=== PATIENT | female | born 1945 | race Caucasian/White ===

== ENCOUNTER → 2018-02-04 09:03 | Outpatient (CLI) | payer MEDICARE, SELFPAY ==
[2018-02-04 10:45] LABS: Cholesterol 210 mg/dL (140-199); HDL Cholesterol 64 mg/dL (40-60); LDL Cholesterol Calculated 129 mg/dL (<100); Triglycerides 83 mg/dL (35-150)
== END ==
PROVIDERS: PCP Internal Medicine; Visit Provider Internal Medicine
DX: M81.0 Age-related osteoporosis without current pathological fracture (principal); Z78.0 Asymptomatic menopausal state; E78.00 Pure hypercholesterolemia, unspecified; I10 Essential (primary) hypertension; Z90.722 Acquired absence of ovaries, bilateral
CPT/HCPCS: 36415; 77080; 80061

== ENCOUNTER → 2018-06-10 12:07 | Outpatient (CLI) | payer MEDICARE, SELFPAY ==
[2018-06-10 14:16] LABS: Alanine Aminotransferase 40 IU/L (9-52); Aspartate Aminotransferase 27 IU/L (14-36); Cholesterol 155 mg/dL (140-199); HDL Cholesterol 67 mg/dL (40-60); LDL Cholesterol Calculated 76 mg/dL (<100); Triglycerides 59 mg/dL (35-150)
== END ==
PROVIDERS: PCP Internal Medicine; Visit Provider Internal Medicine
DX: E78.00 Pure hypercholesterolemia, unspecified (principal)
CPT/HCPCS: 36415; 80061; 84450; 84460

== ENCOUNTER → 2018-12-02 08:04 | Outpatient (CLI) | payer MEDICARE, SELFPAY ==
[2018-12-02 09:44] LABS: Alanine Aminotransferase 27 IU/L (9-52); Aspartate Aminotransferase 32 IU/L (14-36); BUN Creatinine Ratio 31.7 (6-22); Blood Urea Nitrogen 19 mg/dL (7-17); Calcium 8.9 mg/dL (8.4-10.2); Carbon Dioxide 28 mmol/L (22-32); Chloride 105 mmol/L (98-107); Cholesterol 143 mg/dL (140-199); Estimated Glomerular Filt Rate > 60.0 mL/min (>60); Glucose 92 mg/dL (80-110); HDL Cholesterol 65 mg/dL (40-60); HEMOLYSIS < 15 (0-50); LDL Cholesterol Calculated 69 mg/dL (<100); Potassium 4.4 mmol/L (3.4-5.1); Sodium 141 mmol/L (137-145); Triglycerides 47 mg/dL (35-150)
== END ==
PROVIDERS: PCP Internal Medicine; Visit Provider Internal Medicine
DX: I10 Essential (primary) hypertension (principal); E78.00 Pure hypercholesterolemia, unspecified
CPT/HCPCS: 36415; 80048; 80061; 84450; 84460

== ENCOUNTER → 2019-04-12 11:52 | Outpatient (CLI) | payer MEDICARE, SELFPAY ==
[2019-04-12 12:50] LABS: Cholesterol 156 mg/dL (140-199); HDL Cholesterol 66 mg/dL (40-60); LDL Cholesterol Calculated 77 mg/dL (<100); Triglycerides 63 mg/dL (35-150)
== END ==
PROVIDERS: PCP Internal Medicine; Visit Provider Internal Medicine
DX: E78.00 Pure hypercholesterolemia, unspecified (principal)
CPT/HCPCS: 36415; 80061

== ENCOUNTER → 2019-05-31 12:54 | Oncology outpatient (ONC) | payer MEDICARE, SELFPAY ==
[2019-05-31 14:02] VITALS: BP 122/61; PULSE 52; RESP 16; TEMP 36.6; O2SAT 93
[2019-05-31] MEDS: ZOLEDRONIC ACID 5 MG in SODIUM CHLORIDE 0.9% 100 ML 318.75 ML IV (14:18)
== END ==
LOC: ONC 12:56
PROVIDERS: PCP Internal Medicine; Visit Provider Internal Medicine
DX: M81.0 Age-related osteoporosis without current pathological fracture (principal)
CPT/HCPCS: 96365; J3489

== ENCOUNTER → 2019-06-24 14:36 | Outpatient (ROUT) | payer MEDICARE, SELFPAY | PROVIDERS: PCP Internal Medicine; Visit Provider Physician Assistant | DX: R39.9 Unspecified symptoms and signs involving the genitourinary system (principal) | CPT/HCPCS: 87086 ==

== ENCOUNTER → 2019-11-22 14:27 | Outpatient (CLI) | payer MEDICARE, SELFPAY ==
[2019-11-23 12:38] LABS: SARS CoV19 IgG Negative (Negative)
== END ==
PROVIDERS: PCP Internal Medicine; Referring Provider Internal Medicine; Visit Provider Internal Medicine
DX: Z03.818 Encounter for observation for suspected exposure to other biological agents ruled out (principal)
CPT/HCPCS: 36415; 86769

== ENCOUNTER → 2020-11-17 12:39 | Outpatient (CLI) | payer MEDICARE, SELFPAY ==
[2020-11-17 13:28] LABS: Add Manual Diff / Slide Review NO; Basophils Absolute Auto 100 /uL (0-100); Basophils Percent Auto 0.9 % (0-2); Eosinophils Absolute Auto 400 /uL (0-450); Eosinophils Percent Auto 5.4 % (2-4); Hematocrit 39.3 % (36-46); Hemoglobin 13.2 g/dL (12.0-16.0); Lymphocytes Absolute Auto 600 /uL (1100-4500); Lymphocytes Percent Auto 7.6 % (25-40); Mean Corpuscular HGB Conc 33.6 % (30-36); Mean Corpuscular Hemoglobin 31.4 PG (26-34); Mean Corpuscular Volume 93.3 fL (80-100); Monocytes Absolute Auto 700 /uL (0-900); Monocytes Percent Auto 9.9 % (3-14); Neutrophils Absolute Auto 5600 /uL (1500-7000); Neutrophils Percent Auto 76.2 % (50-75); Platelet Count 255 X10^3/uL (150-400); Red Blood Cell Count 4.21 X10^6/uL (4.0-5.2); Red Cell Distribution Width 13.3 % (11.6-14.8); White Blood Cell Count 7.3 X10^3/uL (4.5-11.0)
[2020-11-17 13:44] LABS: Alanine Aminotransferase 23 IU/L (<35); Albumin 4.1 g/dL (3.5-5.0); Albumin Globulin Ratio 1.5 (1.0-2.8); Alkaline Phosphatase 53 U/L (38-126); Aspartate Aminotransferase 33 IU/L (14-36); Bilirubin Total 0.7 mg/dL (0.2-1.3); Blood Urea Nitrogen 17 mg/dL (7-17); Calcium 9.1 mg/dL (8.4-10.2); Carbon Dioxide 29 mmol/L (22-32); Chloride 101 mmol/L (98-107); Estimated Glomerular Filt Rate > 60.0 mL/min (>60); Globulin 2.8 g/dL (1.7-4.1); Glucose 97 mg/dL (80-110); HEMOLYSIS < 15 (0-50); Magnesium 1.9 mg/dL (1.6-2.3); Potassium 4.1 mmol/L (3.4-5.1); Sodium 135 mmol/L (137-145); Total Protein 6.9 g/dL (6.3-8.2)
== END ==
PROVIDERS: PCP Internal Medicine; Referring Provider Internal Medicine Hematology & Oncology; Visit Provider Internal Medicine Hematology & Oncology
DX: C34.90 Malignant neoplasm of unspecified part of unspecified bronchus or lung (principal); I10 Essential (primary) hypertension; C79.31 Secondary malignant neoplasm of brain
CPT/HCPCS: 36415; 80053; 83735; 85025

== ENCOUNTER → 2021-01-05 14:47 | Outpatient (CLI) | payer MEDICARE, SELFPAY ==
[2021-01-05 15:56] LABS: High Sensitivity CRP - Cardiac < 0.3 mg/L (1.0-3.0)
[2021-01-05 16:10] LABS: Erythrocyte Sedimentation Rate 22 MM/HR (0-20)
[2021-01-05 16:29] LABS: Ferritin 83 ng/mL (11-264)
[2021-01-05 16:36] LABS: Vitamin D 25 Hydroxy (D3) 43.6 ng/mL (30.0-100.0)
[2021-01-05 16:42] LABS: Vitamin B12 347 pg/mL (239-931)
[2021-01-06 07:36] LABS: IGA 144 mg/dL (64-422); IGG 1117 mg/dL (586-1602); IGM 106 mg/dL (26-217)
[2021-01-06 08:36] LABS: SARS CoV19 IgG Positive (Negative)
[2021-01-06 21:46] LABS: Zinc 55 ug/dL (44-115)
== END ==
PROVIDERS: PCP Internal Medicine; Referring Provider Naturopath; Visit Provider Naturopath
DX: M85.89 Other specified disorders of bone density and structure, multiple sites (principal); E55.9 Vitamin D deficiency, unspecified; I87.309 Chronic venous hypertension (idiopathic) without complications of unspecified lower extremity; J45.990 Exercise induced bronchospasm; Z20.822 Contact with and (suspected) exposure to COVID-19
CPT/HCPCS: 36415; 82306; 82607; 82728; 82784; 84630; 85651; 86140; 86769

== ENCOUNTER → 2021-02-15 14:56 | Outpatient (CLI) | payer MEDICARE, SELFPAY ==
--- NOTE | 2021-02-15 15:00 | DI.MG.S_ITS ---
BILATERAL DIGITAL SCREENING MAMMOGRAM 3D/2D WITH CAD: 02/15/2021 CLINICAL: Routine screening. Comparison is made to exams dated: 12/19/2014 mammogram, 11/16/2013 mammogram - [facility], 11/13/2012 mammogram, and 11/01/2011 mammogram - [facility]. The tissue of both breasts is heterogeneously dense. This may lower the sensitivity of mammography. Current study was also evaluated with a Computer Aided Detection (CAD) system. There are benign vascular calcifications in both breasts. No significant masses, calcifications, or other findings are seen in either breast. There has been no significant interval change. IMPRESSION: BENIGN There is no mammographic evidence of malignancy. A 1 year screening mammogram is recommended. This exam was interpreted at Station ID: [id number]. NOTE: For mammograms, a report in lay terms will be sent to the patient. Approximately 15% of breast malignancies will not be visualized mammographically. In the management of a palpable breast mass, a negative mammogram must not discourage biopsy of a clinically suspicious lesion. Electronically Signed By: Alverto camara/june:02/15/2021 17:19:24 letter sent: Normal Exam ACR BI-RADS Category 2: Benign Finding(s) 3342F
--- NOTE | 2021-02-15 15:00 | DI.RAD.S_ITS ---
PROCEDURE: XR DEXA AXIAL SKELETON INDICATIONS: ROUTINE SCREENING COMPARISON: None. FINDINGS: This blank DEXA report has been sent in error by the PACS system. The correct and complete report will be forthcoming in 1-2 days. Thank you for your patience and understanding. Dictated by: Oni Beck M.D. on 02/15/2021 at 17:02 Approved by: Oni Beck M.D. on 02/15/2021 at 17:03
== END ==
PROVIDERS: PCP Internal Medicine; Referring Provider Internal Medicine; Visit Provider Internal Medicine
DX: M81.0 Age-related osteoporosis without current pathological fracture (principal); Z12.31 Encounter for screening mammogram for malignant neoplasm of breast; Z78.0 Asymptomatic menopausal state; M85.852 Other specified disorders of bone density and structure, left thigh; M85.851 Other specified disorders of bone density and structure, right thigh; M85.88 Other specified disorders of bone density and structure, other site
CPT/HCPCS: 77063; 77067; 77080

== ENCOUNTER → 2021-04-25 11:16 | Outpatient (CLI) | payer MEDICARE, SELFPAY ==
[2021-04-25 13:22] LABS: COVID-19 CEPHEID PCR (VTM/NP) Negative (Negative)
== END ==
PROVIDERS: PCP Internal Medicine; Visit Provider Physician Assistant
DX: Z20.822 Contact with and (suspected) exposure to COVID-19 (principal)
CPT/HCPCS: C9803; U0003

== ENCOUNTER → 2021-05-28 10:06 | Outpatient (CLI) | payer MEDICARE, SELFPAY ==
[2021-05-28 12:00] LABS: Add Manual Diff / Slide Review NO; Basophils Absolute Auto 100 /uL (0-100); Eosinophils Absolute Auto 200 /uL (0-450); Hematocrit 32.3 % (36-46); Hemoglobin 10.7 g/dL (12.0-16.0); Lymphocytes Absolute Auto 1200 /uL (1100-4500); Lymphocytes Percent Auto 19.5 % (25-40); Mean Corpuscular HGB Conc 33.2 % (30-36); Mean Corpuscular Hemoglobin 28.9 PG (26-34); Mean Corpuscular Volume 86.9 fL (80-100); Monocytes Absolute Auto 800 /uL (0-900); Monocytes Percent Auto 12.5 % (3-14); Neutrophils Absolute Auto 4000 /uL (1500-7000); Platelet Count 124 X10^3/uL (150-400); Red Blood Cell Count 3.71 X10^6/uL (4.0-5.2); Red Cell Distribution Width 21.2 % (11.6-14.8); White Blood Cell Count 6.2 X10^3/uL (4.5-11.0)
[2021-05-28 12:02] LABS: Alanine Aminotransferase 164 IU/L (<35); Albumin 2.8 g/dL (3.5-5.0); Albumin Globulin Ratio 0.9 (1.0-2.8); Alkaline Phosphatase 1216 U/L (38-126); Aspartate Aminotransferase 68 IU/L (14-36); BUN Creatinine Ratio 28.8 (6-22); Bilirubin Total 0.6 mg/dL (0.2-1.3); Blood Urea Nitrogen 15 mg/dL (7-17); Calcium 7.6 mg/dL (8.4-10.2); Carbon Dioxide 26 mmol/L (22-32); Chloride 108 mmol/L (98-107); Estimated Glomerular Filt Rate > 60.0 mL/min (>60); Globulin 3.1 g/dL (1.7-4.1); Glucose 104 mg/dL (80-110); HEMOLYSIS < 15 (0-50); Potassium 4.3 mmol/L (3.4-5.1); Sodium 135 mmol/L (137-145); Total Protein 5.9 g/dL (6.3-8.2)
[2021-05-28 12:38] LABS: Anisocytosis 1+; Poikilocytosis 1+; Polychromasia 1+; Schistocytes 1+
== END ==
PROVIDERS: PCP Internal Medicine; Referring Provider Nurse Practitioner; Visit Provider Nurse Practitioner
DX: C34.90 Malignant neoplasm of unspecified part of unspecified bronchus or lung (principal)
CPT/HCPCS: 36415; 80053; 85025

== ENCOUNTER → 2021-11-12 11:51 | Outpatient (CLI) | payer MEDICARE, SELFPAY | PROVIDERS: PCP Internal Medicine; Visit Provider Physician Assistant | DX: R30.0 Dysuria (principal) | CPT/HCPCS: 87077; 87086; 87186 ==

== ENCOUNTER → 2021-11-30 08:45 | Outpatient (CLI) | payer MEDICARE, SELFPAY | PROVIDERS: PCP Internal Medicine; Visit Provider Nurse Practitioner Family | DX: R30.0 Dysuria (principal) | CPT/HCPCS: 87077; 87086; 87186 ==

== ENCOUNTER → 2022-02-28 12:21 | Outpatient (CLI) | payer MEDICARE, SELFPAY ==
[2022-02-28 14:24] LABS: COVID-19 CEPHEID PCR (VTM/NP) Negative (Negative)
== END ==
PROVIDERS: Referring Provider Internal Medicine Hematology & Oncology; Visit Provider Internal Medicine Hematology & Oncology
DX: C34.90 Malignant neoplasm of unspecified part of unspecified bronchus or lung (principal); C79.31 Secondary malignant neoplasm of brain; Z20.822 Contact with and (suspected) exposure to COVID-19
CPT/HCPCS: C9803; U0003; U0005

== ENCOUNTER → 2022-03-22 10:06 | Outpatient (CLI) | payer MEDICARE, SELFPAY ==
[2022-03-22 16:16] LABS: NT-proBNP (BNP-Adult 18+) 12400 pg/mL (<450)
== END ==
PROVIDERS: PCP Nurse Practitioner; Referring Provider Nurse Practitioner; Visit Provider Nurse Practitioner
DX: R06.02 Shortness of breath (principal); I25.10 Atherosclerotic heart disease of native coronary artery without angina pectoris; I50.32 Chronic diastolic (congestive) heart failure
CPT/HCPCS: 36415; 83880

== ENCOUNTER 2022-04-04 21:39 | Emergency (ER) | payer MEDICARE, SELFPAY ==
[2022-04-04 21:45] VITALS: BP 139/62; PULSE 64; RESP 18; TEMP 37.1; O2SAT 99
--- NOTE | 2022-04-05 01:03 | PC.NURSE ---
registration noted pt leaving, pt has iv, called pt, paras, spouse called back and stated he removed the iv, i asked if the straw/ plastic piece was intact he said yes. he states there is no active bleeding. i explained he can bring her back if he needs assistance.
== END 2022-04-04 23:47 | disposition left against medical advice (07) ==
PROVIDERS: Emergency Provider Emergency Medicine; PCP Nurse Practitioner
DX: R53.1 Weakness (principal)
CPT/HCPCS: 36415; 99283

== ENCOUNTER 2022-04-15 06:13 | Emergency (ER) | payer MEDICARE, SELFPAY ==
[2022-04-15] VITALS (11 sets, daily range): BP systolic 108–134; BP diastolic 55–63; PULSE 65–75; RESP 14; TEMP 36.7; O2SAT 96–100
--- NOTE | 2022-04-15 07:05 | DI.CT.S_ITS ---
PROCEDURE: CT KIDNEY URETER BLADDER (KUB) INDICATIONS: left flank pain TECHNIQUE: Axial sections were acquired from the lung bases to the pubic symphysis. Coronal and sagittal reformats were performed. For radiation dose reduction, the following was used: automated exposure control, adjustment of mA and/or kV according to patient size. COMPARISON: [facility], CT, CT ABDOMEN PELVIS WITHOUT CONTRAST, 04/10/2022, 0:35. [facility], CT, THORAX WITH CONTRAST, 05/24/2016, 10:11. Outside Facility, RG, CT THORAX W/O CONTRAST, 05/10/2016, 13:43. [facility], CR, CHEST 1 VIEW, 06/07/2016, 10:37. FINDINGS: Image quality: Diagnostic Lung bases: Moderate right and small left bilateral pleural effusions with associated compressive atelectasis. Heart: Mild cardiomegaly. Atherosclerosis. No pericardial effusion. URINARY: Interval placement of bilateral double-J ureteral stents with appropriate positioning of the stents. There is persistent moderate bilateral hydronephrosis. No evidence for free air or organized fluid collection. Previously seen hyperdense material within the renal pelvises, ureters and bladder are not as pronounced and likely represent passage of suspected hemorrhagic products. Bladder: Normal wall thickness. No stones. ABDOMEN: Liver: There is diffuse hypoattenuation of the liver parenchyma relative to the spleen compatible with hepatic steatosis. Gallbladder: Gallbladder contains multiple layering gallstones. No CT evidence to suggest acute cholecystitis. Biliary ducts: Unremarkable. Pancreas: Unremarkable. Spleen: Unremarkable. Adrenal Glands: Unremarkable. Stomach and Bowel: Stomach, small bowel loops, and colon are unremarkable. Scattered colonic diverticulosis. No evidence for acute diverticulitis. Peritoneum: No abnormal intraperitoneal fluid. No free air. Interval increase in amount of small amount of diffusely scattered free fluid noted throughout the abdomen. No evidence for organized fluid collection. Ventral Wall: No hernia. Abdominal Nodes: Redemonstration of multiple enlarged peripancreatic and sam hepatis lymph nodes compatible with metastatic disease. Vessels: Aorta and inferior vena cava are normal in size. Scattered atherosclerotic calcifications of the abdominal aorta and iliac vessels without aneurysmal dilatation. The inferior vena cava appears patent. PELVIS: Pelvic Organs: Unremarkable. Pelvic Nodes: Unremarkable. Miscellaneous: No inguinal hernias are seen. Bones: Redemonstration of extensive sclerotic lesions scattered throughout the imaged spine and pelvis compatible with blastic metastatic disease. IMPRESSION: 1. Interval placement of bilateral double-J ureteral stents with appropriate positioning. Persistent moderate bilateral hydronephrosis. 2. Interval increase of small amount of diffusely scattered free fluid throughout the abdomen and pelvis without evidence for organized fluid collection. 3. Cardiomegaly with moderate-sized right and small left bilateral pleural effusions. 4. Cholelithiasis without evidence for acute cholecystitis. 5. Colonic diverticulosis. 6. Diffusely heterogeneous hypoattenuation of the liver which may represent hepatic steatosis although possible infiltrative metastatic disease not excluded given presence of diffusely scattered blastic osseous metastatic disease. 7. Redemonstration of enlarged peripancreatic and sam hepatis lymph nodes compatible with metastatic disease. Dictated by: David Brown M.D. on 04/15/2022 at 7:46 Approved by: David Brown M.D. on 04/15/2022 at 8:03
--- NOTE | 2022-04-15 07:24 | ED.FEMALEGU ---
HPI - Female Genitourinary <Lela Biswas DO - Last Filed: 04/19/22 19:27> General Chief complaint: Urogenital-Female Stated complaint: unable to urinate Time Seen by Provider: 04/15/22 06:54 Source: family Mode of arrival: Wheelchair History of Present Illness HPI Narrative: Patient is a 77-year-old female history of metastatic lung cancer with ureter blockage. She had urinary stents placed last week at [facility]. She has an appointment and a VAC evaluation with hospice tomorrow. Family is concerned because she has not urinated since last night. She has no abdominal pain no nausea or vomiting. His she does have periods of confusion and periods of lucency daughter states that she is actually doing pretty well today. She denies any other symptoms. Goals of care was discussed with family. At this time agree with blood work and CT to check stent placement along with a urinalysis to check for UTI. They would be open and agreeable to antibiotics if needed. Bladder scan only showed 20 cc Related Data Home Medications Medication Instructions Recorded Confirmed amlodipine 5 mg tablet 5 mg PO DAILY 10/22/17 11/30/21 carvedilol 6.25 mg tablet 6.25 mg PO BID 10/22/17 11/30/21 erlotinib 25 mg tablet (Tarceva) 75 mg PO DAILY 10/22/17 11/30/21 losartan 100 mg tablet 100 mg PO DAILY 10/22/17 11/30/21 Previous Rx's Medication Instructions Recorded escitalopram oxalate 10 mg tablet 10 mg PO QDAY #90 tabs 03/22/16 (Lexapro) nitrofurantoin 100 mg PO Q12H 7 days #14 caps 04/15/22 monohydrate/macrocrystals 100 mg capsule (Macrobid) Allergies Allergy/AdvReac Type Severity Reaction Status Date / Time Sulfa (Sulfonamide Allergy Mild HIVES Unverified 11/30/21 08:55 Antibiotics) [SULFA (SULFONAMIDE ANTIBIOTICS)] lisinopril [LISINOPRIL] Allergy Unknown Unverified 11/30/21 08:55 nickel [NICKEL] Allergy Unknown Unverified 11/30/21 08:55 wool [WOOL] Allergy Unknown Unverified 11/30/21 08:55 Review of Systems <DO Court Donato Last Filed: 04/19/22 19:27> Review of Systems Narrative: GENERAL: Denies chills, fatigue, malaise, fever, sweats, travel HEENT: Denies sinus pain, ear pain, sore throat, difficulty swallowing, neck pain RESPIRATORY: Denies dyspnea, cough, wheezing, hemoptysis, sputum. CARDIOVASCULAR: Denies chest pain, palpitations, orthopnea, edema GASTROINTESTINAL: Denies nausea, vomiting, abdominal pain, diarrhea, constipation, melena. : See HPI MUSCULOSKELETAL: Denies weakness, joint pain, or bony pain SKIN: No rash, no erythema, no pruritus NEUROLOGIC: Denies weakness, dizziness, headache, numbness, change in speech, confusion PSYCHIATRIC: No concerning psychosocial issues. 12 point review of systems is negative except for those stated above and HPI Patient History <Lela Biswas DO - Last Filed: 04/19/22 19:27> Medical History Diarrhea Surgical History History of bladder suspension procedure Status post vaginal hysterectomy Family History Brother GERD (gastroesophageal reflux disease) Child Juvenile melanoma Father Aortic aneurysm Heart disease Hypertension High cholesterol Grandfather Melanoma Mother Diabetes mellitus Heart disease Hypertension Sister Barretts esophagus Substance Use Type: does not use Exam <Lela Biswas DO - Last Filed: 04/19/22 19:27> Initial Vital Signs Initial Vital Signs: Vital Signs Temperature 98.1 F 04/15/22 06:28 Pulse Rate 75 04/15/22 06:28 Respiratory Rate 14 04/15/22 06:28 Blood Pressure 108/55 L 04/15/22 06:28 Pulse Oximetry 97 04/15/22 06:28 Oxygen Delivery Method 04/15/22 06:28 GENERAL: Alert 77-year-old female mildly confused and in no acute distress. HEENT: Head atraumatic,EOMI, pupils reactive, face symmetric, moist mucous membranes CARDIOVASCULAR: Regular rate and rhythm without murmurs, rubs or gallops. RESPIRATORY: Breath sounds equal bilaterally, no wheezes rales or rhonchi. ABDOMEN: Soft, nontender. Normoactive bowel sounds all 4 quadrants. No guarding or rebound. : No CVA tenderness EXTREMITIES: Normal range of motion, no clubbing or edema. Neurovascularly intact NEUROLOGICAL: Alert and oriented x4. SKIN: Warm, dry, no laceration, no petechiae, no rashes or lesions. <DO Court Tamayo Last Filed: 04/15/22 20:56> Initial Vital Signs Initial Vital Signs: Vital Signs Temperature 98.1 F 04/15/22 06:28 Pulse Rate 75 04/15/22 06:28 Respiratory Rate 14 04/15/22 06:28 Blood Pressure 108/55 L 04/15/22 06:28 Pulse Oximetry 97 04/15/22 06:28 Oxygen Delivery Method 04/15/22 06:28 Course <DO Court Donato Last Filed: 04/19/22 19:27> Orders Ordered: Discontinued Medications Hydromorphone HCl (Hydromorphone 2 Mg Tablet) 2 mg PO NOW ONE Stop: 04/15/22 10:41 Last Admin: 04/15/22 11:24 Dose: 2 mg Documented By: TONI Sodium Chloride (Normal Saline 0.9%) 1,000 mls @ 1,000 mls/hr IV BOLUS ONE Stop: 04/15/22 08:04 Last Infusion: 04/15/22 11:25 Dose: 0 mls/hr Documented By: Admin: 04/15/22 08:55 Dose: 1,000 mls/hr Documented By: MISTI Nitrofurantoin Macrocrystals (Nitrofurantoin Er 100 Mg Capsule) 100 mg PO NOW ONE Stop: 04/15/22 11:24 Last Admin: 04/15/22 11:27 Dose: 100 mg Documented By: TONI Vital Signs Vital signs: Vital Signs - 8 hr 04/15/22 06:28 04/15/22 07:19 04/15/22 08:06 Temperature 98.1 F Pulse Rate 75 65 66 Respiratory Rate 14 Blood Pressure 108/55 L Pulse Oximetry 97 99 100 Oxygen Delivery Method Nasal Cannula 04/15/22 08:30 04/15/22 09:00 Temperature Pulse Rate 66 67 Respiratory Rate Blood Pressure Pulse Oximetry 100 100 Oxygen Delivery Method <DO Court Tamayo Last Filed: 04/15/22 20:56> Orders Ordered: Discontinued Medications Hydromorphone HCl (Hydromorphone 2 Mg Tablet) 2 mg PO NOW ONE Stop: 04/15/22 10:41 Last Admin: 04/15/22 11:24 Dose: 2 mg Documented By: TONI Sodium Chloride (Normal Saline 0.9%) 1,000 mls @ 1,000 mls/hr IV BOLUS ONE Stop: 04/15/22 08:04 Last Infusion: 04/15/22 11:25 Dose: 0 mls/hr Documented By: Admin: 04/15/22 08:55 Dose: 1,000 mls/hr Documented By: MISTI Nitrofurantoin Macrocrystals (Nitrofurantoin Er 100 Mg Capsule) 100 mg PO NOW ONE Stop: 04/15/22 11:24 Last Admin: 04/15/22 11:27 Dose: 100 mg Documented By: NR Vital Signs Vital signs: Vital Signs - 8 hr 04/15/22 06:28 04/15/22 07:19 04/15/22 08:06 Temperature 98.1 F Pulse Rate 75 65 66 Respiratory Rate 14 Blood Pressure 108/55 L Pulse Oximetry 97 99 100 Oxygen Delivery Method Nasal Cannula 04/15/22 08:30 04/15/22 09:00 Temperature Pulse Rate 66 67 Respiratory Rate Blood Pressure Pulse Oximetry 100 100 Oxygen Delivery Method MDM - Female Genitourinary <Lela Biswas DO - Last Filed: 04/19/22 19:27> Lab Data Result diagrams: 04/15/22 09:10 04/15/22 09:10 Labs: Lab Results 04/15/22 04/15/22 Range/Units 09:10 09:10 WBC 20.2 H (4.5-11.0) X10^3/uL RBC 2.53 L (4.0-5.2) X10^6/uL Hgb 8.5 L (12.0-16.0) g/dL Hct 24.9 L (36-46) % MCV 98.2 (80-100) fL MCH 33.5 (26-34) PG MCHC 34.1 (30-36) % RDW 23.3 H (11.6-14.8) % Plt Count 94 L (150-400) X10^3/uL Neut % (Auto) 89.9 H (50-75) % Lymph % (Auto) 3.8 L (25-40) % Blanco % (Auto) 4.8 (3-14) % Eos % (Auto) 1.4 L (2-4) % Baso % (Auto) 0.1 (0-2) % Neut # (Auto) 67139 H (2014-0341) /uL Lymph # (Auto) 800 L (9547-7027) /uL Blanco # (Auto) 1000 H (0-900) /uL Eos # (Auto) 300 (0-450) /uL Baso # (Auto) 0 (0-100) /uL RBC Morphology Not Reportable Poikilocytosis 2+ H Anisocytosis 2+ H Sodium 127 L (137-145) mmol/L Potassium 4.2 (3.4-5.1) mmol/L Chloride 95 L (98-107) mmol/L Carbon Dioxide 19 L (22-32) mmol/L BUN 100 H (7-17) mg/dL Creatinine 4.52 H (0.52-1.04) mg/dL Estimated GFR 9 L (>60) mL/min BUN/Creatinine Ratio 22.1 H (6-22) Glucose 76 L (80-110) mg/dL Calcium 8.0 L (8.4-10.2) mg/dL Total Bilirubin 3.1 H (0.2-1.3) mg/dL AST 258 H (14-36) IU/L ALT 79 H (<35) IU/L Alkaline Phosphatase 1082 H (38-126) U/L Total Protein 5.3 L (6.3-8.2) g/dL Albumin 2.2 L (3.5-5.0) g/dL Globulin 3.1 (1.7-4.1) g/dL Albumin/Globulin Ratio 0.7 L (1.0-2.8) Procalcitonin 2.24 H (<0.5) ng/mL MDM Narrative Medical decision making narrative: Patient initial evaluation and discussion done by myself. They decided to go ahead with blood work and CT scan for assessment and make decisions based on those results. She does have an evaluation with hospice tomorrow but is not yet admitted to hospice. Patient signed out to Dr. Ni for further management. Last 04/15/22: Patient signed out to myself by Dr. Biswas. Patient seen independently evaluated by myself. She has history of metastatic lung cancer with ureteral blockage and presented with decreased urine output for the past 12 hours. They are supposed to meet with hospice for the 1st time tomorrow. Patient had CT KUB which shows placement of ureteral stents appropriate patient any persistent moderate bilateral hydro, increase small amount diffusely scattered free fluid without evidence organized fluid collection, cardiomegaly and small bilateral pleural effusions gallstones but no evidence of infection and changes to the liver that could be infiltrative metastatic disease based on her and osseous metastatic disease with enlarged. Pancreatic and for to hepatis lymph nodes. Patient on bladder scan had less than 20 cc, patient was difficult to access, DI contacted for labs and to give fluids. Patient's family is at bedside she is comfort measures only, she has not made any urine she is in acute renal failure potassium is not elevated but she likely has a pyelonephritis or bladder infection with a white count of 20, procalcitonin is elevated and acute kidney injury. Discussing with family hospice coming tomorrow they do not wish for additional intervention she is a prescription for oral Dilaudid that will be available this afternoon they are open to antibiotics as she is having a lot bladder irritation I think this would be appropriate. But will discharge home. Discussed placing catheter for comfort in case she does start making urine as they will not know if she is retaining verses having output and do not have any ability to bladder scan at home. Patient is agreeable to this and I agree with their plan. We did discuss they can return if they are unable to keep the patient comfortable at home. <Jennifer Ni, - Last Filed: 04/15/22 20:56> Lab Data Labs: Lab Results 04/15/22 04/15/22 Range/Units 09:10 09:10 WBC 20.2 H (4.5-11.0) X10^3/uL RBC 2.53 L (4.0-5.2) X10^6/uL Hgb 8.5 L (12.0-16.0) g/dL Hct 24.9 L (36-46) % MCV 98.2 (80-100) fL MCH 33.5 (26-34) PG MCHC 34.1 (30-36) % RDW 23.3 H (11.6-14.8) % Plt Count 94 L (150-400) X10^3/uL Neut % (Auto) 89.9 H (50-75) % Lymph % (Auto) 3.8 L (25-40) % Blanco % (Auto) 4.8 (3-14) % Eos % (Auto) 1.4 L (2-4) % Baso % (Auto) 0.1 (0-2) % Neut # (Auto) 92768 H (0669-8282) /uL Lymph # (Auto) 800 L (1274-1744) /uL Blanco # (Auto) 1000 H (0-900) /uL Eos # (Auto) 300 (0-450) /uL Baso # (Auto) 0 (0-100) /uL RBC Morphology Not Reportable Poikilocytosis 2+ H Anisocytosis 2+ H Sodium 127 L (137-145) mmol/L Potassium 4.2 (3.4-5.1) mmol/L Chloride 95 L (98-107) mmol/L Carbon Dioxide 19 L (22-32) mmol/L BUN 100 H (7-17) mg/dL Creatinine 4.52 H (0.52-1.04) mg/dL Estimated GFR 9 L (>60) mL/min BUN/Creatinine Ratio 22.1 H (6-22) Glucose 76 L (80-110) mg/dL Calcium 8.0 L (8.4-10.2) mg/dL Total Bilirubin 3.1 H (0.2-1.3) mg/dL AST 258 H (14-36) IU/L ALT 79 H (<35) IU/L Alkaline Phosphatase 1082 H (38-126) U/L Total Protein 5.3 L (6.3-8.2) g/dL Albumin 2.2 L (3.5-5.0) g/dL Globulin 3.1 (1.7-4.1) g/dL Albumin/Globulin Ratio 0.7 L (1.0-2.8) Procalcitonin 2.24 H (<0.5) ng/mL Imaging Data CT scan - abdomen/pelvis: Radiologist's Impression: Close Abdomen/Pelvis CT (Signed) David Brown - 04/15/[address] [address] [address] Scan Report Signed Patient: Gloria Rodríguez MR#: [id number] : 1945 Acct:[id number] Age/Sex: 77 / F Date of Service: 04/15/22 Loc: ED Accession Number: [id number] ?? Procedure: CT kidney ureter bladder (KUB) Ordering Provider: Lela Biswas D.O. PROCEDURE:? CT KIDNEY URETER BLADDER (KUB) ? INDICATIONS:? left flank pain ? TECHNIQUE:? Axial sections were acquired from the lung bases to the pubic symphysis.? Coronal and sagittal reformats were performed.? For radiation dose reduction, the following was used: ?automated exposure control, adjustment of mA and/or kV according to patient size.? ? COMPARISON:? [facility], CT, CT ABDOMEN PELVIS WITHOUT CONTRAST, 04/10/2022, 0:35.? [facility], CT, THORAX WITH CONTRAST, 05/24/2016, 10:11.? Outside Facility, RG, CT THORAX W/O CONTRAST, 05/10/2016, 13:43.? [facility], CR, CHEST 1 VIEW, 06/07/2016, 10:37. ? FINDINGS:? Image quality:? Diagnostic ? Lung bases:? Moderate right and small left bilateral pleural effusions with associated compressive atelectasis. Heart:? Mild cardiomegaly.? Atherosclerosis.? No pericardial effusion. ? URINARY: Interval placement of bilateral double-J ureteral stents with appropriate positioning of the stents.? There is persistent moderate bilateral hydronephrosis.? No evidence for free air or organized fluid collection.? Previously seen hyperdense material within the renal pelvises, ureters and bladder are not as pronounced and likely represent passage of suspected hemorrhagic products. ? Bladder:? Normal wall thickness. No stones. ? ? ? ABDOMEN: Liver:? There is diffuse hypoattenuation of the liver parenchyma relative to the spleen compatible with hepatic steatosis. Gallbladder:? Gallbladder contains multiple layering gallstones.? No CT evidence to suggest acute cholecystitis.? ? Biliary ducts:? Unremarkable.? ? Pancreas:? Unremarkable.? ? Spleen:? Unremarkable.? ? Adrenal Glands:? Unremarkable.? ? ? Stomach and Bowel:? Stomach, small bowel loops, and colon are unremarkable.? Scattered colonic diverticulosis.? No evidence for acute diverticulitis. Peritoneum:? No abnormal intraperitoneal fluid.? No free air.? Interval increase in amount of small amount of diffusely scattered free fluid noted throughout the abdomen.? No evidence for organized fluid collection. ? Ventral Wall: ? No hernia.? Abdominal Nodes:? Redemonstration of multiple enlarged peripancreatic and sam hepatis lymph nodes compatible with metastatic disease. Vessels:? Aorta and inferior vena cava are normal in size.? Scattered atherosclerotic calcifications of the abdominal aorta and iliac vessels without aneurysmal dilatation.? The inferior vena cava appears patent. ? PELVIS: Pelvic Organs:? Unremarkable.? ? Pelvic Nodes: Unremarkable. Miscellaneous: No inguinal hernias are seen. ? ? ? Bones:? Redemonstration of extensive sclerotic lesions scattered throughout the imaged spine and pelvis compatible with blastic metastatic disease. ? IMPRESSION:? ? 1. Interval placement of bilateral double-J ureteral stents with appropriate positioning. ?Persistent moderate bilateral hydronephrosis. ? 2. Interval increase of small amount of diffusely scattered free fluid throughout the abdomen and pelvis without evidence for organized fluid collection. ? 3. Cardiomegaly with moderate-sized right and small left bilateral pleural effusions. ? 4. Cholelithiasis without evidence for acute cholecystitis. ? 5. Colonic diverticulosis. ? 6. Diffusely heterogeneous hypoattenuation of the liver which may represent hepatic steatosis although possible infiltrative metastatic disease not excluded given presence of diffusely scattered blastic osseous metastatic disease. ? 7. Redemonstration of enlarged peripancreatic and sam hepatis lymph nodes compatible with metastatic disease. ? ? ? Dictated by: David Brown M.D. on 04/15/2022 at 7:46 ? ? Approved by: David Brown M.D. on 04/15/2022 at 8:03?? [facility] Narrative Medical decision making narrative: Last 04/15/22: Patient signed out to myself by Dr. Biswas. Patient seen independently evaluated by myself. She has history of metastatic lung cancer with ureteral blockage and presented with decreased urine output for the past 12 hours. They are supposed to meet with hospice for the 1st time tomorrow. Patient had CT KUB which shows placement of ureteral stents appropriate patient any persistent moderate bilateral hydro, increase small amount diffusely scattered free fluid without evidence organized fluid collection, cardiomegaly and small bilateral pleural effusions gallstones but no evidence of infection and changes to the liver that could be infiltrative metastatic disease based on her and osseous metastatic disease with enlarged. Pancreatic and for to hepatis lymph nodes. Patient on bladder scan had less than 20 cc, patient was difficult to access, DI contacted for labs and to give fluids. Patient's family is at bedside she is comfort measures only, she has not made any urine she is in acute renal failure potassium is not elevated but she likely has a pyelonephritis or bladder infection with a white count of 20, procalcitonin is elevated and acute kidney injury. Discussing with family hospice coming tomorrow they do not wish for additional intervention she is a prescription for oral Dilaudid that will be available this afternoon they are open to antibiotics as she is having a lot bladder irritation I think this would be appropriate. But will discharge home. Discussed placing catheter for comfort in case she does start making urine as they will not know if she is retaining verses having output and do not have any ability to bladder scan at home. Patient is agreeable to this and I agree with their plan. We did discuss they can return if they are unable to keep the patient comfortable at home. Discharge Plan Departure Patient Disposition: Home Clinical Impression: Renal failure, Metastatic cancer Activity Restrictions/Additional Instructions: Your kidneys have stopped working effectively, your potassium is appropriate today but will likely continue to climb and will make your heart stop over the next several days to week unless you start to make regular urine. I hope you find Hospice helpful. You likely have an infection in your bladder or kidneys and this is causing the bladder irritation you can take an oral antibiotic to see if this improves your symptoms. You did receive a dose of oral pain medication you can take your next dose in 4 hours. Please return if you are unable to keep you comfortable at home or are having other difficulties. Prescriptions: New nitrofurantoin monohyd/m-cryst [Macrobid] 100 mg capsule 100 mg PO Q12H 7 Days Qty: 14 0RF Rx Instructions: must administer with a meal/food No Action losartan 100 mg tablet 100 mg PO DAILY carvedilol 6.25 mg tablet 6.25 mg PO BID amlodipine 5 mg tablet 5 mg PO DAILY erlotinib [Tarceva] 25 mg tablet 75 mg PO DAILY escitalopram oxalate [Lexapro] 10 MG tablet 10 mg PO QDAY Qty: 90 4RF Referrals: Jael Solitario ARNP [Primary Care Provider] - Visit Report Forms: Patient Portal/API
[2022-04-15] MEDS: SODIUM CHLORIDE 0.9% 1,000 ML 1000 ML IV (08:55)
[2022-04-15 09:30] LABS: Add Manual Diff / Slide Review NO; Basophils Absolute Auto 0 /uL (0-100); Basophils Percent Auto 0.1 % (0-2); Eosinophils Absolute Auto 300 /uL (0-450); Eosinophils Percent Auto 1.4 % (2-4); Hematocrit 24.9 % (36-46); Hemoglobin 8.5 g/dL (12.0-16.0); Lymphocytes Absolute Auto 800 /uL (1100-4500); Lymphocytes Percent Auto 3.8 % (25-40); Mean Corpuscular HGB Conc 34.1 % (30-36); Mean Corpuscular Hemoglobin 33.5 PG (26-34); Mean Corpuscular Volume 98.2 fL (80-100); Monocytes Absolute Auto 1000 /uL (0-900); Monocytes Percent Auto 4.8 % (3-14); Neutrophils Absolute Auto 18200 /uL (1500-7000); Neutrophils Percent Auto 89.9 % (50-75); Platelet Count 94 X10^3/uL (150-400); Red Blood Cell Count 2.53 X10^6/uL (4.0-5.2); Red Cell Distribution Width 23.3 % (11.6-14.8); White Blood Cell Count 20.2 X10^3/uL (4.5-11.0)
[2022-04-15 09:41] LABS: Alanine Aminotransferase 79 IU/L (<35); Albumin 2.2 g/dL (3.5-5.0); Albumin Globulin Ratio 0.7 (1.0-2.8); Alkaline Phosphatase 1082 U/L (38-126); Aspartate Aminotransferase 258 IU/L (14-36); BUN Creatinine Ratio 22.1 (6-22); Bilirubin Total 3.1 mg/dL (0.2-1.3); Blood Urea Nitrogen 100 mg/dL (7-17); Carbon Dioxide 19 mmol/L (22-32); Chloride 95 mmol/L (98-107); Estimated Glomerular Filt Rate 9 mL/min (>60); Globulin 3.1 g/dL (1.7-4.1); Glucose 76 mg/dL (80-110); HEMOLYSIS < 15 (0-50); Potassium 4.2 mmol/L (3.4-5.1); Sodium 127 mmol/L (137-145); Total Protein 5.3 g/dL (6.3-8.2)
[2022-04-15 09:52] LABS: Anisocytosis 2+; Poikilocytosis 2+
[2022-04-15 09:56] LABS: Procalcitonin 2.24 ng/mL (<0.5)
[2022-04-15] MEDS: HYDROMORPHONE 2 MG TABLET PO (11:24)
[2022-04-15] MEDS: NITROFURANTOIN ER 100 MG CAPSULE PO (11:27)
== END 2022-04-15 11:43 | disposition home or self-care (01) ==
PROVIDERS: Emergency Medicine; Emergency Provider Emergency Medicine; PCP Nurse Practitioner
DX: N19 Unspecified kidney failure (principal); C78.00 Secondary malignant neoplasm of unspecified lung; R41.0 Disorientation, unspecified; R10.9 Unspecified abdominal pain
CPT/HCPCS: 51798; 74176; 80053; 84145; 85025; 96360; 96361; 99284